=== PATIENT | male | born 1980 | race Caucasian/White ===

== ENCOUNTER → 2016-08-06 | Day surgery (SDC) | payer BC, OTHER ==
[2016-07-25 08:19] VITALS: BMI 22.0
--- NOTE | 2016-07-25 08:49 | PAT Medication Instructions ---
Service Date Jul 25, 2016. Current Home Medication List Loratadine (Claritin), 10 MG PO QAM Prednisone (Prednisone), 0 PO UD Medication Instructions For Your Scheduled Surgery - Hold the following medications the morning of surgery: Loratadine (Claritin), 10 MG PO QAM - Take the following medications the morning of surgery with a sip of water: Prednisone (Prednisone), 0 PO UD (if still taking) If you have any questions please call us at [phone] or [phone] ( Elena) or [phone]
[2016-07-25 10:36] LABS: BASO % 0.9 %; BASO ABS # 0.04 K/uL (0-0.2); COMPLETE YES; EOS % 5.1 %; HEMATOCRIT 46.1 % (42-52); LYMPH % 37.1 %; LYMPH ABS # 1.67 K/uL (1.2-3.4); MEAN CELL VOLUME 88.1 fL (80-100); MEAN CORPUSCULAR HEMOGLOBIN 30.2 pg (25-34); MEAN CORPUSCULAR HGB CONC 34.3 g/dl (32-36); MEAN PLATELET VOLUME 10.8 fL (7.4-10.4); MONO % 6.4 %; NEUT % 50.5 %; PLATELET COUNT 275 K/uL (130-400); RED BLOOD COUNT 5.23 M/uL (4.7-6.1)
[2016-07-25 10:49] LABS: BUN/CREATININE RATIO 14.9 (10-20); CALCIUM 8.8 mg/dl (8.5-10.1); CREATININE 0.9 mg/dl (0.60-1.40); POTASSIUM 4.5 mmol/L (3.5-5.1)
[2016-07-25 10:51] LABS: ALB/GLOB RATIO 1.3 (0.9-2)
[~2016-08-06] VITALS: Ht 193 cm; Wt 83.1 kg
[~2016-08-06] MED LIST: CLR10 PO; CONRAY 60% 50 ML VIAL ONE; DEXAMETHASONE SOD INJ 4 MG/ML VIAL ONE; DiphenhydrAMINE HCL 50 MG/ML VIAL IV PRN; FENTANYL CITRATE INJ 50 MCG/1 ML 2 ML VIAL IV PRN; FENTANYL CITRATE INJ 50 MCG/1 ML 2 ML VIAL ONE; GLYCOPYRROLATE INJ 0.2 MG/ML VIAL ONE; HYDROmorphone INJ 1 MG/ML SYR IV PRN; KETOROLAC TROMETHAMINE 30 MG/ML VIAL IV. PRN; LACTATED RINGER'S 1000ML 1,000 ML IV PRN; LACTATED RINGER'S 1000ML 1,000 ML IV SCH; LARYING-O-JET KIT (LTA) EXT ONE; LIDOCAINE HCL 2% 2 ML VIAL (20MG/ML) ONE; LIDOCAINE/EPINEPHRINE 1% 20 ML VIAL ONE; METOCLOPRAMIDE HCL INJ 5 MG/ML 2 ML VIAL IV PRN; MIDAZOLAM HCL 1 MG/ML 2ML VIAL ONE; MoRPHine SULFATE 2 MG/ML CARP IV PRN; NEOSTIGMINE METHYLSULFATE 5 MG/5 ML SYR ONE; ONDANSETRON INJ 2 MG/ML 2 ML VIAL IV PRN; ONDANSETRON INJ 2 MG/ML 2 ML VIAL ONE; OXYC-57 PO; OXYCODONE/ACETAMINOPHEN 5-325 TAB PO PRN; PRED-301 PO; PROPOFOL IV EMULSION 10 MG/ML 20 ML VIAL IV ONE; ROCURONIUM BROMIDE 10 MG/ML 5 ML VIAL ONE; WATER, STERILE FOR INJ 10 ML VIAL ONE
[2016-08-06 07:21] VITALS: BP 119/72; PULSE 57; TEMP 36.5; Ht 193 cm; Wt 83.1 kg
--- NOTE | 2016-08-06 07:51 | History & Physical Bridge Note ---
H&P Re-Evaluation Bridge Note: I have examined the patient, reviewed the History & Physical and in the interval since the performance of the History & Physical I have noted the following changes of clinical significance: No changes noted SO at bedside abd neg all questions answered
--- NOTE | 2016-08-06 08:02 | Discharge Instructions ---
Discharge Instructions Date of Service Aug 06, 2016. Visit Reason for Visit: Chronic Cholecystitis Discharge Discharge Diagnosis / Problem: laparoscopic cholecystectomy Discharge Goals Goal(s): Decrease discomfort Activity Recommendations Activity Limitations: as noted below Lifting Limitations: no more than 10 pounds Shower/Bathe: tomorrow Driving or Machine Use: resume 3 days after discharge Anesthesia . Post Anesthesia Instructions: If you have had General Anesthesia or IV Sedation: * Do not drive today. * Resume driving when surgeon permits. * Do not make important decisions or sign legal documents today. * Call surgeon for: 1. Temperature elevations greater than 101 degrees F. 2. Uncontrollable pain. 3. Excessive bleeding. 4. Persistent nausea and vomiting. 5. Medication intolerance (nausea, vomiting or rash). * For nausea and vomiting use only clear liquids such as: tea, soda, bouillon until nausea subsides, then gradually increase diet as tolerated. * If you have any concerns or questions, call your surgeon's office. If physician is unavailable and it is an emergency, call 911 or go to the nearest emergency room. . Instructions / Follow-Up Instructions / Follow-Up Dr. Carty in 1 week, call [phone] if you do not already have an appt or for any questions Diet Recommendations Recommended Home Diet: no limitations Pending Studies Studies pending at discharge: no Medical Emergencies . Who to Call and When: Medical Emergencies: If at any time you feel your situation is an emergency, please call 911 immediately. . Non-Emergent Contact Non-Emergency issues call your: Surgeon Call Non-Emergent contact if: you have a fever, temperature is above 101.5, your pain is not controlled, wound has increased redness . . "Provider Documentation" section prepared by Constantin Boyd.
--- NOTE | 2016-08-06 09:07 | DIAGNOSTIC IMAGING REPORT ---
INTRAOPERATIVE CHOLANGIOGRAM HISTORY: Post cholecystectomy. FLUOROSCOPY TIME: 3 seconds. FINDINGS: Fluoroscopy was provided for an intraoperative cholangiogram status post cholecystectomy. Contrast was injected through the cystic duct remnant. The common bile duct is normal in course and caliber. There are no filling defects seen within the common bile duct to suggest a retained stone. Contrast extends into the small bowel. There is no intrahepatic bile duct dilatation. IMPRESSION: Fluoroscopy provided for an intraoperative cholangiogram status post cholecystectomy. No filling defects within the common bile duct. Electronically signed by: Jerrod Ramirez M.D. 08/06/2016 9:05 AM Dictated Date/Time: 08/06/2016 9:04 AM
--- NOTE | 2016-08-06 09:21 | [facility] Post Operative Brief Note ---
Immediate Operative Summary Operative Date Aug 06, 2016. Pre-Operative Diagnosis Chronic cholecystitis Post-Operative Diagnosis Chronic cholecystitis Procedure(s) Performed Laparoscopic Cholecystectomy with Cholangiogram Surgeon Dr. Carty Frit Maker Surgeon(s) Constantin Boyd PA-C Estimated Blood Loss 3cc Findings cc Specimens A: Gallbladder
--- NOTE | 2016-08-06 09:50 | Anesthesiology Progress Note ---
Anesthesia Post Op Note Date & Time Aug 06, 2016 at 09:49 Vital Signs Pain Intensity: 4 Vital Signs Past 12 Hours Date Time Temp Pulse Resp B/P Pulse Ox O2 Delivery O2 Flow Rate FiO2 08/06/16 09:40 60 16 136/94 100 Mask 10 08/06/16 09:30 36.6 67 16 144/93 99 Mask 10 08/06/16 07:21 36.5 57 57 119/72 Room Air Notes Mental Status: alert / awake / arousable, participated in evaluation Pt Amnestic to Procedure: Yes Nausea / Vomiting: adequately controlled Pain: adequately controlled Airway Patency, RR, SpO2: stable & adequate BP & HR: stable & adequate Hydration State: stable & adequate Anesthetic Complications: no major complications apparent Pt doing well.
--- NOTE | 2016-08-06 10:04 | OPERATIVE REPORT ---
DATE OF OPERATION: 08/06/2016 SURGEON: Dr. Carty. DOCTOR OF NURSE ANESTHESIA: Constantin Boyd PA-C. PREOPERATIVE DIAGNOSIS: Chronic cholecystitis. POSTOPERATIVE DIAGNOSIS: Same. PROCEDURE: Laparoscopic cholecystectomy, intraoperative cholangiogram. SUMMARY: After induction of general anesthesia, the patient's abdomen was prepped with Betadine scrubbing solution and properly draped. We made a small transverse incision supraumbilically enough to place a Veress needle, followed by CO2, followed by a 5 mm trocar, followed by the scope. Point of entry inspected and no injury identified. Under direct visualization, a 5 mm epigastric and two 5 mm subcostal ports were placed with preemptive local analgesia 1% Xylocaine. Gallbladder was visualized, placed under traction, elevated with the grasper, and what we see is the patient has some fine adhesions, especially in the neck of the gallbladder, we took those down. We started dissecting down the triangular of [place] which was markedly scarred in, but we were able to get around. Actually the artery came in more anteriorly and superiorly that we were able to [place] it with a right angle and then clipped it proximally twice, distally once, and divided. The cystic duct was then identified at its takeoff from the gallbladder, it was clipped proximally. A small opening in the cystic duct was made. A #4 urethral catheter was positioned in the cystic duct. It took about 4 clip appliers to probably secure it in place. It seemed like there was something technically wrong with the clip appliers, but at the end we were able to find out that probably one of the clips that we had placed and some of the tissue around the gallbladder may have been posteriorly impinging it. We at this point once we secured the catheter in cystic duct, serial x-rays were taken, showed free flow into the duodenum, no obstruction. Cholangiocath was removed. The cystic duct was divided. At this point, we could see a clip posterior to the cystic duct that may have caused the impingement of the clip appliers before. We then removed the gallbladder in antegrade fashion using electrocautery at 25 coag. We tried to leave as much of the peritoneum posterior in the liver cauterizing as we went along. The gallbladder was then removed intact through the epigastric port. What we identified at the end of the procedure is the patient had cholesterolosis of the gallbladder and the gallbladder wall was thickened and probably chronically inflamed. Subhepatic and suprahepatic area was then checked for hemostasis and appeared satisfactory. We placed the camera in subcostal ports to visualize the umbilical opening. There were no adhesions identified in that area. Individual trocars were removed under direct visualization and lastly the umbilical trocar. Wounds were closed with 4-0 Monocryl. Steri-Strips applied. The procedure was tolerated well by the patient and was taken to recovery room in good condition. Estimated blood loss approximately 3 mL. I attest to the content of the Intraoperative Record and any orders documented therein. Any exceptions are noted below. MTDD
[2016-08-06 10:15] VITALS: BP 147/93; PULSE 54; TEMP 36.6; O2SAT 95
[2016-08-06 10:45] VITALS: BP 137/92; PULSE 56; O2SAT 97
[2016-08-06 11:15] VITALS: BP 120/61; PULSE 61; TEMP 36.6; O2SAT 97
== END | disposition home or self-care (01) ==
LOC: C.ACU 07:02
PROVIDERS: ATTEND Surgery
DX: K81.1 Chronic cholecystitis (principal); Z98.52 Vasectomy status; Z68.22 Body mass index [BMI] 22.0-22.9, adult